=== PATIENT | male | born 1940 | race Caucasian/White ===

== ENCOUNTER 2017-05-17 12:42 | Outpatient (CLI) | payer MEDICARE, BC ==
--- NOTE | 2017-05-17 16:01 | MRI ---
MRI OF BRAIN FOLLOWING ORBIT PROTOCOL. TECHNIQUE: Multiplanar, multisequential imaging of brain obtained. Orbit protocol was followed with pre- and po st-contrast images through the orbits with coronal and axial images with thin sections through the or bits. Post contrast images were also obtained through the entire brain with T2 FLAIR and diffusion i mages also obtained. HISTORY: Optic atrophy right eye. Request is made to evaluate the right optic nerve. FINDINGS: Ventricles have normal size and position. Mild chronic ischemic white matter changes are seen. No e vidence of restricted diffusion. The intracranial internal carotid arteries and proximal cerebral arteries show normal flow voids. Ba silar artery is patent. Paranasal sinuses appear clear with evidenced of a small mucous retention cy st along the anterior wall of the left maxillary sinus measuring approximately 1.0 cm. Optic nerves appear normal and symmetric. No evidence of optic nerve mass or abnormal optic nerve en hancement identified. Optic chiasm appears unremarkable. No abnormal enhancement in the brain. IMPRESSION: 1. Mild chronic ischemic white matter change. 2. Otherwise, unremarkable MRI of brain. Unremarkable MRI of optic nerve. POS: [facility]
[2017-05-17] MEDS ORDERED: Gadobenate Dimeglumine 529 MG/1 ML (20ML VIAL) ONE (16:33)
== END 2017-05-17 12:43 | disposition home or self-care (01) ==
LOC: TBSIIMAG 12:42
PROVIDERS: ATTEND Ophthalmology
DX: H47.20 Unspecified optic atrophy (principal); I67.82 Cerebral ischemia
CPT/HCPCS: 70553; A9579

== ENCOUNTER 2018-10-04 15:11 | Outpatient (CLI) | payer MEDICARE, BC ==
--- NOTE | 2018-10-04 16:32 | RAD ---
CHEST PA AND LATERAL VIEWS: 10/04/18 HISTORY: Cough. FINDINGS: Comparison is made with exam of 09/17/14. The heart size is normal. The lungs are expanded without focal areas of consolidation, pneumothoraces , or pleural effusions. There are degenerative changes in the spine. IMPRESSION: No radiographic evidence of acute cardiopulmonary process. POS: [facility]
== END 2018-10-04 15:12 | disposition home or self-care (01) ==
LOC: BICRAD 15:11
PROVIDERS: ATTEND Internal Medicine
DX: R05 Cough (principal)
CPT/HCPCS: 36415; 71046; 80048; 83970

== ENCOUNTER 2022-12-22 08:43 | Outpatient (CLI) | payer MEDICARE, BC | END 2022-12-22 08:44 | disposition home or self-care (01) | LOC: BICRAD 08:43 | PROVIDERS: ATTEND Internal Medicine | DX: R05.9 Cough, unspecified (principal) | CPT/HCPCS: 36415; 71046; 80048; 85025 ==

== ENCOUNTER 2024-03-20 16:22 | Outpatient (CLI) | payer MEDICARE | END 2024-03-20 16:23 | disposition home or self-care (01) | LOC: BICRAD 16:22 | PROVIDERS: ATTEND Internal Medicine | DX: R05.9 Cough, unspecified (principal) | CPT/HCPCS: 71046 ==